=== PATIENT | male | born 1960 | race Caucasian/White ===

== ENCOUNTER → 2023-04-30 16:23 | Outpatient (REF) | payer OTHER, SELFPAY | LOC: HWRAD 16:23 | PROVIDERS: ATTENDING PHYSICIAN Physician Assistant; FAMILY PHYSICIAN Family Medicine | DX: N28.89 Other specified disorders of kidney and ureter (principal) | CPT/HCPCS: 71046 ==

== ENCOUNTER → 2023-05-11 10:58 | Outpatient (REF) | payer OTHER, SELFPAY | LOC: HWRAD 10:58 | PROVIDERS: ATTENDING PHYSICIAN Physician Assistant; FAMILY PHYSICIAN Family Medicine; REFERRING PHYSICIAN Urology | DX: N28.89 Other specified disorders of kidney and ureter (principal) | CPT/HCPCS: 76775 ==

== ENCOUNTER → 2023-06-05 11:25 | Outpatient (REF) | payer OTHER, SELFPAY | LOC: HWRAD 11:25 | PROVIDERS: ATTENDING PHYSICIAN Physician Assistant; FAMILY PHYSICIAN Family Medicine | DX: C64.9 Malignant neoplasm of unspecified kidney, except renal pelvis (principal) | CPT/HCPCS: 74178; Q9967 ==

== ENCOUNTER 2023-09-04 09:34 | Emergency (ER) | payer OTHER, SELFPAY ==
[2023-09-04 09:36] VITALS: BP 182/119
--- NOTE | 2023-09-04 09:46 | ED.GENMED ---
History of Present Illness
General
Chief Complaint: Urinary Symptoms
Source: patient
Time Seen by Provider: 09/04/23 09:38
Travel History
Have you had any contact with someone who has COVID-19?: No
Do you have any symptoms of coronavirus? Fever > 100 degrees, chills, cough, shortness of breath, sore throat, loss of taste or smell, muscle aches, or headache?: No
History of Present Illness
History of Present Illness:
62-year-old male with past medical history of hypertension, GERD, BPH presenting to the emergency department for evaluation of inability to urinate since 6 AM this morning. Patient reports significant lower abdominal pressure and an urge to urinate
but inability to do so. He states this has happened previously with the last time being this past March. Patient takes alfuzosin and reports good compliance with this. Denies any fevers, chills, rigors, back or flank pain, nausea, vomiting. No
other concerns
Past History
Past History
ED Past Medical History: Cancer, GERD and HTN
ED Past Surgical History: Appendectomy and Other
Social History
Tobacco: Former smoker
Alcohol: None
Drug: None
Personal:
Living: with family
Employment: Employed
Review of Systems
Review of Systems
All Other Systems: ROS reviewed and negative except as documented in HPI and ROS
Phy Exam
Physical Exam
Physical Exam:
GENERAL: Alert , appears very uncomfortable
EYE: conjunctiva clear
Head: Normocephalic atraumatic
NECK: Supple,
ENT: mmm.
LUNGS: no acute respiratory distress
Abdomen: Distended suprapubic region, firm to palpation
NEUROLOGICAL: Alert and oriented
SKIN: Warm and dry, skin intact.
MUSCULOSKELETAL: well perfused.
PSYCH: Normal and appropriate interaction.
Scores
Heart Failure Risk
Heart Failure Risk Score: Not Applicable
Heart Score for Chest Pain Patients
STEMI patient?: Not applicable
Withdrawal Assessment of Alcohol
Withdrawal Assessment Completed?: Not applicable
Course
Orders/Labs/Results
Orders:
Orders
09/04/23 09:39
Bladder Scan- Treatment ONCE
09/04/23 10:02
Urinalysis Reflex To Culture Urgent
Date Specimen was Collected: 09/04/23
Time Specimen was Collected: 09:54
Vital Signs
Initial and Last Documented VS:
Initial Vital Signs
Temp Pulse Resp BP Pulse Ox
97.4 F 110 18 182/119 98
09/04/23 09:36 09/04/23 09:36 09/04/23 09:36 09/04/23 09:36 09/04/23 09:36
Last Documented Vital Signs
Temp Pulse Resp BP Pulse Ox
97.4 F 74 16 135/72 98
09/04/23 09:36 09/04/23 10:49 09/04/23 10:49 09/04/23 10:49 09/04/23 10:49
MDM/Problems Addressed
Differential Diagnosis Includes:
Urinary retention, cystitis, pyelonephritis
MDM/Problems Addressed:
62-year-old male presenting to the emergency department for evaluation of inability to urinate since 6 AM. Significant abdominal distention and tenderness on exam. Patient is also quite uncomfortable in appearance. Bedside bladder scan shows
greater than 600 mL of urine within the bladder. Due to his acute urinary retention decision was made to place a indwelling Adame catheter. Will send off a urinalysis to evaluate for any infection. Continue his alfuzosin at home. Close follow-up
with urology. Anticipate discharge following.
Chronic conditions affecting care: Other (BPH)
Acute Exacerbation and/or Progression of Chronic Illness: Other (BPH)
*Pulse Oximetry
Patient hypoxic: no
*Critical Care Note
Total Time (30-74mins, 75-104mins- exclusive of procedures): Not Applicable
Data Reviewed
Review of Other/Old Records Reveals: Labs and Records
Source: patient and records
Comment
Comment:
10:05 AM: Patient with greater than 1000 mL of urine after Adame catheter placed. Symptoms significantly improved. UA pending. Anticipate discharge following.
Patient Management
Escalation/DeEscalation of care consider admission/obs:
Patient's urinalysis without any signs of infection. Stable for discharge home and outpatient management with his urologist. Aware of return precautions.
ED Attending Note
-
Portions of this chart may have been created with voice recognition software.� Occasional wrong word or��sound alike� substitutions may have occurred due to the inherent limitations of voice recognition software.
Discharge Plan
Departure
Patient Disposition: Home (Routine Discharge)
Date of Disposition: 09/04/23
Time of Disposition: 10:38
Patient with high blood pressure during this ER visit?: Yes
Discharge Problem:
Acute urinary retention
Instructions: How to Care for Your Adame Catheter, Male
Prescriptions:
No Action
Diovan
160 mg DAILY
bacitracin 1 APPLIC ointment
3.5 gm RIGHT EYE TID Qty: 1 0RF
Referrals:
Jorge Hernandez MD [Family Provider] -
Activity Restrictions/Additional Instructions:
Please contact your urologist for close follow-up visit within the next week
Interventions
Interventions:
*Risk Screen - Suicide Last Done: 09/04/23 09:36
*General Assessment Last Done: 09/04/23 09:36
*Neglect/Abuse Screening Last Done: 09/04/23 09:36
*ED COVID-19 Vaccine History Last Done: 09/04/23 09:36
*Nursing Disposition Last Done: 09/04/23 10:50
ED-Male Genitourinary Assessment Last Done: 09/04/23 09:54
Discharge Date and Time
Discharge Date/Time: 09/04/23 10:50
Print Language: KAZAKH
[2023-09-04 10:49] VITALS: BP 135/72
[2023-09-04 10:53] LABS: Urine Albumin Negative (Neg - Trace); Urine Bilirubin Negative (Negative); Urine Character Clear (Clear); Urine Color Yellow; Urine Glucose Negative (Negative); Urine Ketone Negative (Negative); Urine Leukocyte Negative (Negative); Urine Nitrite Negative (Negative); Urine Occult Blood Negative (Negative); Urine Urobilinogen Negative (Neg - 1+)
== END 2023-09-04 10:50 | disposition home or self-care (01) ==
LOC: EMR 09:34
PROVIDERS: Physician Assistant Medical; EMERGENCY PHYSICIAN Emergency Medicine; FAMILY PHYSICIAN Family Medicine
DX: N40.1 Benign prostatic hyperplasia with lower urinary tract symptoms (principal); R33.8 Other retention of urine; I10 Essential (primary) hypertension; K21.9 Gastro-esophageal reflux disease without esophagitis; Z87.891 Personal history of nicotine dependence
CPT/HCPCS: 99283; 51798; 51702; 81003

== ENCOUNTER 2023-11-28 00:07 | Emergency (ER) | payer OTHER, SELFPAY ==
[2023-11-28 00:23] VITALS: BP 173/121
[2023-11-28] MEDS: LIDOCAINE URO-JET 2% 1 SYRINGE TOPICAL (00:47)
[2023-11-28 00:55] LABS: Urine Albumin Negative (Neg - Trace); Urine Bilirubin Negative (Negative); Urine Character Clear (Clear); Urine Color Yellow; Urine Glucose Negative (Negative); Urine Ketone Negative (Negative); Urine Leukocyte Negative (Negative); Urine Nitrite Negative (Negative); Urine Occult Blood Negative (Negative); Urine Urobilinogen Negative (Neg - 1+); Urine pH 6.5 (5.0-9.0)
--- NOTE | 2023-11-28 01:53 | ED.GENMED ---
History of Present Illness
General
Chief Complaint: Male Genito-Urinary Symptoms
Source: patient
Exam Limitations: none
Time Seen by Provider: 11/28/23 01:47
History of Present Illness
History of Present Illness:
See MDM
Past History
Past History
ED Past Medical History: Cancer, GERD and HTN
ED Past Surgical History: Appendectomy and Other
Social History
Tobacco: Former smoker
Alcohol: None
Drug: None
Personal:
Living: with family
Employment: Employed
Phy Exam
Physical Exam
Physical Exam:
See MDM
Course
Orders/Labs/Results
Orders:
Orders
11/28/23 00:32
Lidocaine 2% [Lidocaine Uro-Jet 2%] 1 syringe .ROUTE .[facility]
11/28/23 00:47
Urine Reflex Culture from UA [Urinalysis Reflex To Culture] Urgent
Date Specimen was Collected: 11/28/23
Time Specimen was Collected: 00:46
Lidocaine 2% [Lidocaine Uro-Jet 2%] 1 syringe TOPICAL NOW STA
Vital Signs
Initial and Last Documented VS:
Initial Vital Signs
Pulse Resp BP Pulse Ox
111 20 173/121 99
11/28/23 00:23 11/28/23 00:23 11/28/23 00:23 11/28/23 00:23
Last Documented Vital Signs
Pulse Resp BP Pulse Ox
111 20 173/121 99
11/28/23 00:23 11/28/23 00:23 11/28/23 00:23 11/28/23 00:23
MDM/Problems Addressed
Differential Diagnosis Includes:
HPI and MDM Narrative:
63-year-old male presenting with abdominal discomfort and inability urinate. Patient states he has been trying to urinate for the past 4 hours. Due to his discomfort, nursing did place Adame catheter. The catheter removed over 600 mL of urine.
Symptoms are improving. Patient states similar issue occurred several months ago
Physical exam
General: Well appearing and non-toxic (my exam was performed after Adame catheter was placed)
HEENT: protecting airway
Neck: appears supple
CV: No evidence of cyanosis
Resp: No accessory muscle use
Abd: Non-distended and nontender
Extremities: No deformities
Neuro: alert
Psych: Normal affect
Skin: Intact
Problems Addressed including Acute and Chronic Conditions affecting care:
1. Acute urinary retention
Acuity: acute
Prognosis: stable
Details: Adame catheter was placed which resolved all symptoms. Discussed having this reevaluated by PCP in urologist. Patient has a known prostate issue and is already on prostate medicine
Differential Diagnosis (but not limited to): UTI, acute urinary retention
Testing considered: Creatinine
Drug therapy (if applicable): OTC meds, please see d/c instruction regarding Rx drugs
Amount and/or Complexity of Data Reviewed
Clinical info obtained from: Patient
External data reviewed: N/A
Labs I independently reviewed (but not limited to): Urinalysis negative for infection
Radiology: N/A
Pulse Ox: not hypoxic
EKG independently reviewed: N/A
Skin Care Therapist: N/A
Critical Care: N/A
Risk of Complication:
Social Determinants of health: Good social support
Discussed with other providers: N/A
Escalation of Care includes Admit/Obs: After being observed in the Emergency Department, pt stable for discharge.
Occasional wrong word or 'sound a like' substitutions may have occurred due to the inherent limitations of voice recognition software. Read the chart carefully and recognize, using context, where substitutions have occurred.
*Critical Care Note
Total Time (30-74mins, 75-104mins- exclusive of procedures): Not Applicable
ED Attending Note
-
Portions of this chart may have been created with voice recognition software.� Occasional wrong word or��sound alike� substitutions may have occurred due to the inherent limitations of voice recognition software.
Discharge Plan
Departure
Patient Disposition: Home (Routine Discharge)
Date of Disposition: 11/28/23
Time of Disposition: 01:54
Patient with high blood pressure during this ER visit?: Yes
Discharge Problem:
Acute urinary retention
Instructions: How to Care for Your Adame Catheter, Male, BLOOD PRESSURE
Prescriptions:
No Action
Diovan
160 mg DAILY
bacitracin 1 APPLIC ointment
3.5 gm RIGHT EYE TID Qty: 1 0RF
Referrals:
Jorge Hernandez MD [Family Provider] -
Activity Restrictions/Additional Instructions:
Please return for any worsening symptoms.
You may return at any time if you have further concerns.
Please follow up with your doctor or urologist at the first available appointment.
Thank you for choosing [facility].
Interventions
Interventions:
*Risk Screen - Suicide Last Done: 11/28/23 00:23
*Neglect/Abuse Screening Last Done: 11/28/23 00:23
ED- Fall Risk Assessment Last Done: 11/28/23 00:59
*ED COVID-19 Vaccine History Last Done: 11/28/23 00:23
ED-Male Genitourinary Assessment Last Done: 11/28/23 00:59
Discharge Date and Time
Print Language: GAMBIAN
[2023-11-28 02:15] VITALS: BP 133/83
== END 2023-11-28 02:17 | disposition home or self-care (01) ==
LOC: EMR 00:07
PROVIDERS: Emergency Medicine; EMERGENCY PHYSICIAN Student in an Organized Health Care Education/Training Program; FAMILY PHYSICIAN Family Medicine
DX: R33.9 Retention of urine, unspecified (principal); I10 Essential (primary) hypertension; K21.9 Gastro-esophageal reflux disease without esophagitis; Z85.9 Personal history of malignant neoplasm, unspecified; Z87.891 Personal history of nicotine dependence
CPT/HCPCS: 99284; 51702; 81003

== ENCOUNTER 2023-12-02 05:41 | Emergency (ER) | payer OTHER, SELFPAY ==
[2023-12-02 05:45] VITALS: BP 157/83; BMI 25.6
[2023-12-02 06:00] VITALS: BP 135/79
[2023-12-02 06:13] LABS: % Basophils 0.3 % (0-2); % Eosinophils 1.4 % (0-6); % Immature Granulocytes 0.3 % (0-0.5); % Lymphocytes 30.7 % (20.5-51.1); % Monocytes 4.9 % (1.7-9.3); % Neutrophils 62.4 % (42.2-75.2); Absolute Eosinophils 0.1 10^3/uL (0-0.7); Absolute Lymphocytes 1.8 10^3/uL (1.2-3.4); Absolute Monocytes 0.3 10^3/uL (0.1-0.6); Absolute Neutrophils 3.6 10^3/uL (1.4-6.5); Hematocrit 39.9 % (39.0-52.0); Hemoglobin 14.7 g/dL (13.0-18.0); Mean Corp Hgb Conc. 36.8 g/dL (33.0-37.0); Mean Corpuscular Hgb 29.3 pg (27.0-31.0); Mean Corpuscular Volume 79.6 fL (80.0-94.0); Mean Platelet Volume 11.1 fL (7.4-10.4); Nucleated Red Blood Cells % 0 % (-); Platelet Count 144 10^3/uL (130-400); Red Blood Cell Count 5.01 10^6/uL (4.70-6.10); Red Cell Dist. Width 13.3 % (11.5-14.5); White Blood Cell Count 5.7 10^3/uL (4.8-10.8)
--- NOTE | 2023-12-02 06:24 | ED.GENMED ---
History of Present Illness
General
Chief Complaint: Back Pain
Source: patient and spouse
Exam Limitations: none
Time Seen by Provider: 12/02/23 06:23
History of Present Illness
History of Present Illness:
63-year-old male with left scapular leg pain about 10 PM. Lasted for 5 to 10 minutes then resolved. Recurred at 4:30 in the morning. Has been persistent since then no though significantly improved. No pleuritic pain no shortness of breath no
nausea or vomiting. No diaphoresis. Some of the discomfort may have radiated to his chest. No history of same. Patient exercises regularly without issues
Past History
Past History
ED Past Medical History: Cancer, GERD and HTN
ED Past Surgical History: Appendectomy and Other
Social History
Tobacco: Former smoker
Alcohol: None
Drug: None
Personal:
Living: with family
Employment: Employed
Review of Systems
Review of Systems
All Other Systems: Not applicable
Respiratory: Reports no symptoms
ABD/GI: Reports no symptoms
Phy Exam
Physical Exam
Physical Exam:
GENERAL: Alert and oriented in no apparent distress
EYE: Orbits normal.
NECK: Supple, nontender
ENT: Pharynx without erythema
CARDIAC: Regular rate and rhythm without any obvious murmurs.
LUNGS: Clear breath sounds,normal. No scapular tenderness or swelling. No rash. No vesicles.
ABDOMEN: Soft, without focal tenderness or distention
NEUROLOGICAL: Alert and oriented , grossly non-focal
SKIN: Warm and dry, no rash or lesion, no discoloration, skin intact.
MUSCULOSKELETAL: No edema,no deformity.Good color
PSYCH: Normal and appropriate interaction.
Course
Orders/Labs/Results
Orders:
Orders
12/02/23 05:43
Electrocardiogram (*1) Urgent
Reason for Study: Chest Pain
Cardiac Monitoring- Treatment ONCE
EKG- Treatment ONCE
IV Insert/Care/Rem.- Treatment PRN
O2 Therapy [RESP] Urgent
Titrate/Wean O2 to maintain O2 sat greater than (%): 90
Special Instructions: Maintain sats >/=90%
Pulse Ox/spot Check [RESP] Urgent
Quantity: 1
Special Instructions: ON ROOM AIR
12/02/23 05:52
CXR2 [CR Chest - 2 Views ] Urgent
Comment:
Reason For Exam: upper left back pain
12/02/23 05:56
Comprehensive Metabolic Panel Urgent
Lipase Urgent
Troponin I Urgent
12/02/23 05:57
COVID-19 Antigen Urgent
Source: Nasal Swab
Complete Blood Count/With Diff Urgent
12/02/23 06:33
CT Chest Angio W/wo Iv Contras Urgent
Comment:
Reason For Exam: Sudden left scapular pain
0.9% Sodium Chloride 500 ml [Nss] 500 ml IV BOLUS
12/02/23 09:23
Electrocardiogram (*1) Stat
Reason for Study: Other
Other Reason for Exam: chest pain
EKG- Treatment ONCE
12/02/23 09:59
Troponin I Urgent
Abnormal Lab Results
12/02/23 12/02/23
05:56 05:57
MCV 79.6 L fL
(80.0-94.0)
MPV 11.1 H fL
(7.4-10.4)
Chloride 108 H mmol/L
(98-107)
BUN 26 H mg/dl
(9-20)
Glucose 127 H mg/dl
(70-99)
Total Protein 6.2 L g/dl
(6.3-8.2)
12/02/23 05:57
12/02/23 05:56
Vital Signs
Initial and Last Documented VS:
Initial Vital Signs
Temp Pulse Resp BP Pulse Ox
98.7 F 80 18 157/83 99
12/02/23 05:45 12/02/23 05:45 12/02/23 05:45 12/02/23 05:45 12/02/23 05:45
Last Documented Vital Signs
Temp Pulse Resp BP Pulse Ox
98.7 F 74 18 128/84 98
12/02/23 05:45 12/02/23 10:00 12/02/23 10:00 12/02/23 10:00 12/02/23 10:00
MDM/Problems Addressed
Differential Diagnosis Includes:
Sudden left scapular pain. Doubt cardiac. EKG stable. Troponin pending. Will repeat in 3 hours for completeness. Although unlikely to be dissection or pulmonary emboli clinically.... This needs to be ruled out. CT angio pending.
*Radiology
Radiology exam reviewed: preliminary read by ED provider (Negative chest x-ray) and radiology read reviewed (Stable CT scan. Small pulmonary nodules)
*Pulse Oximetry
Patient hypoxic: no
*EKG
Interpreted by ED Provider?: Yes
Interpretation: normal
Comparison EKG: no changes
Heart Rate: 77
Rate: normal
Rhythm: sinus
[place]: normal axis
Interval: normal interval
QRS Pattern: normal QRS
Ischemia: no ischemia
*Critical Care Note
Total Time (30-74mins, 75-104mins- exclusive of procedures): Not Applicable
Data Reviewed
Review of Other/Old Records Reveals: Labs, Records and Testing
Update Note
Update Note:
Patient is remained stable throughout his ER stay. He is clinically stable now. He has no symptoms. Repeat KG is sinus bradycardia at 56. No acute changes. Repeat troponin is negative. CT angiography negative. Discharged to follow-up
ED Attending Note
-
Portions of this chart may have been created with voice recognition software.� Occasional wrong word or��sound alike� substitutions may have occurred due to the inherent limitations of voice recognition software.
Discharge Plan
Departure
Patient Disposition: Home (Routine Discharge)
Date of Disposition: 12/02/23
Time of Disposition: 11:29
Patient with high blood pressure during this ER visit?: Yes
Discharge Problem:
Sudden left scapular/chest pain
Instructions: Upper Back Pain (DC), Chest Pain CBC Follow Up, BLOOD PRESSURE
Prescriptions:
No Action
Diovan
160 mg DAILY
bacitracin 1 APPLIC ointment
3.5 gm RIGHT EYE TID Qty: 1 0RF
Referrals:
Jorge Hernandez MD [Family Provider] - Follow up in 2-3 days
Interventions
Interventions:
*Risk Screen - Suicide Last Done: 12/02/23 05:45
*General Assessment Last Done: 12/02/23 05:45
*Neglect/Abuse Screening Last Done: 12/02/23 05:45
ED- Fall Risk Assessment Last Done: 12/02/23 05:45
*ED COVID-19 Vaccine History Last Done: 12/02/23 05:45
ED-Musculoskeletal Assessment Last Done: 12/02/23 06:15
Discharge Date and Time
Print Language: SENEGALESE
[2023-12-02 06:30] LABS: ALT (SGPT) 16 U/L (0-50); AST (SGOT) 20 U/L (17-59); Albumin 3.9 g/dl (3.5-5.0); Alkaline Phosphatase 62 U/L (38-126); Blood Urea Nitrogen 26 mg/dl (9-20); Calcium 9.3 mg/dl (8.4-10.2); Carbon Dioxide 22 mmol/L (22-30); Chloride 108 mmol/L (98-107); Estimated Creatinine Clearance 96 ml/min; Glucose 127 mg/dl (70-99); Lipase 228 U/L (23-300); Potassium 3.9 mmol/L (3.5-5.1); Sodium 139 mmol/L (135-145); Total Protein 6.2 g/dl (6.3-8.2); eGFR > 60.00
[2023-12-02 06:38] LABS: COVID-19 Antigen Negative (Negative)
[2023-12-02 06:40] LABS: Troponin I < 0.012 ng/ml
[2023-12-02] MEDS: NSS 500 IV (06:44)
[2023-12-02 07:00] VITALS: BP 119/73
[2023-12-02 10:00] VITALS: BP 128/84
[2023-12-02 10:42] LABS: Troponin I < 0.012 ng/ml
[2023-12-02 11:41] VITALS: BP 115/73
== END 2023-12-02 11:54 | disposition home or self-care (01) ==
LOC: EMR 05:41
PROVIDERS: Student in an Organized Health Care Education/Training Program; EMERGENCY PHYSICIAN Emergency Medicine; FAMILY PHYSICIAN Family Medicine
DX: R07.89 Other chest pain (principal); K21.9 Gastro-esophageal reflux disease without esophagitis; I10 Essential (primary) hypertension; Z87.891 Personal history of nicotine dependence; Z90.49 Acquired absence of other specified parts of digestive tract
CPT/HCPCS: 99284; 71046; 71275; 80053; 83690; 84484; 85025; 87811; 93005; Q9967

== ENCOUNTER 2024-02-01 02:54 | Emergency (ER) | payer OTHER, SELFPAY ==
[2024-02-01 02:57] VITALS: BP 157/102
[2024-02-01 03:30] LABS: Urine Albumin Negative (Neg - Trace); Urine Bilirubin Negative (Negative); Urine Character Clear (Clear); Urine Color Yellow; Urine Glucose Negative (Negative); Urine Ketone Negative (Negative); Urine Leukocyte Negative (Negative); Urine Nitrite Negative (Negative); Urine Occult Blood Negative (Negative); Urine Specific Gravity 1.015 (<1.030); Urine Urobilinogen Negative (Neg - 1+)
--- NOTE | 2024-02-01 04:45 | ED.GENMED ---
History of Present Illness
General
Chief Complaint: Male Genito-Urinary Symptoms
Source: patient
Exam Limitations: none
Time Seen by Provider: 02/01/24 04:24
Nursing documentation reviewed up to this point in time: agreed with
History of Present Illness
History of Present Illness:
Pleasant 63-year-old male presents with urinary retention. He presented to the emergency department with the need for Adame catheter. He states that he has been here 2 other times for urinary obstruction. He is scheduled for a prostatic ablation
at [facility] next week. Denies any other symptoms.
Past History
Past History
ED Past Medical History: Cancer, GERD and HTN
ED Past Surgical History: Appendectomy and Other
Social History
Tobacco: Former smoker
Alcohol: None
Drug: None
Personal:
Living: with family
Employment: Employed
Review of Systems
Review of Systems
Allergies reviewed?: Yes
All Other Systems: ROS reviewed and negative except as documented in HPI and ROS
Constitutional: Reports no symptoms
EENT: Reports no symptoms
Respiratory: Reports no symptoms
Cardiac: Reports no symptoms
ABD/GI: Reports no symptoms
: Reports difficulty voiding
Musculoskeletal: Reports no symptoms
Skin: Reports no symptoms
Neurological: Reports no symptoms
Endocrine: Reports no symptoms
Hematologic/Lymphatic: Reports no symptoms
Psychiatric: Reports no symptoms
Phy Exam
General Physical Exam
General Presentation: well appearing
General age: appears stated age
General Skin: warm
General Habitus: normal
General Mental: alert
General Hydration: appears well hydrated
Cardiovascular Exam
Cardiovascular Exam: regular rate/rhythm and no edema
Pulmonary Exam
Pulmonary Exam: no respiratory distress and no cough
Neurological Exam
Neurological Exam: alert and oriented x3
Musculoskeletal Exam
Musculoskeletal Exam: full ROM
Skin Exam
Skin Exam: normal color and warm/dry
Psychiatric Exam
Psychiatric Exam: normal mood/affect
Course
Orders/Labs/Results
Orders:
Orders
02/01/24 03:17
Adame [Adame Placement- Treatment] ONCE
Reason for insertion: Acute Retention
Catheter- Indwelling As Directed
Reason for insertion: Acute Retention
Size: 16
Type: Indwelling
Discontinue Date/Time: 02/04/24 0600
02/01/24 03:20
Urinalysis Reflex To Culture Urgent
Date Specimen was Collected: 02/01/24
Time Specimen was Collected: 03:18
Vital Signs
Initial and Last Documented VS:
Initial Vital Signs
Temp Pulse Resp BP Pulse Ox
98.3 F 105 16 157/102 98
02/01/24 02:57 02/01/24 02:57 02/01/24 02:57 02/01/24 02:57 02/01/24 02:57
Last Documented Vital Signs
Temp Pulse Resp BP Pulse Ox
98.3 F 105 16 157/102 98
02/01/24 02:57 02/01/24 02:57 02/01/24 02:57 02/01/24 02:57 02/01/24 02:57
*Critical Care Note
Total Time (30-74mins, 75-104mins- exclusive of procedures): Not Applicable
Update Note
Update Note:
Adame catheter was placed. Leg bag in place. Patient tolerated procedure well. Urinalysis sent. Within normal limits.
ED Attending Note
-
Portions of this chart may have been created with voice recognition software.� Occasional wrong word or��sound alike� substitutions may have occurred due to the inherent limitations of voice recognition software.
Discharge Plan
Departure
Patient Disposition: Home (Routine Discharge)
Date of Disposition: 02/01/24
Time of Disposition: 04:47
Patient with high blood pressure during this ER visit?: Yes
Discharge Problem:
Acute urinary retention
Instructions: How to Care for Your Adame Catheter, Male, Urinary Retention (DC)
Prescriptions:
No Action
Diovan
160 mg PO DAILY
Referrals:
Jorge Hernandez MD [Family Provider] -
Activity Restrictions/Additional Instructions:
Please follow-up with your urologist at [facility].
It was a pleasure meeting you and taking part in your care. We hope for your continued healing and wellness.
Please read discharge instructions in their entirety. However, they are for general education and may not describe your exact diagnosis at discharge. Information on your ER visit and medical conditions were discussed with you along with appropriate
follow up information...
If indicated, please take your medications as instructed and indicated on discharge paperwork.
Please schedule a follow up appointment as directed. Call to schedule an appointment
Please return to the emergency department with ANY change in, persisting, or worsening of symptoms. If any of your symptoms do not improve, or persist, or become more severe within 6-12 hours, please return to the emergency department for further
care.
Please return to the emergency department if you develop a headache, neck pain/stiffness, fever greater than 100.4F, chest pain, shortness of breath, persistent nausea, vomiting, slurred speech, difficulty walking, numbness/tingling, weakness, signs
of infection or any other symptoms that are worrisome to you.
If you have any questions or concerns please do not hesitate to call the Hospital at or E-mail me directly at [email or web address]
Interventions
Interventions:
*Risk Screen - Suicide Last Done: 02/01/24 02:57
*Neglect/Abuse Screening Last Done: 02/01/24 02:57
ED- Fall Risk Assessment Last Done: 02/01/24 03:20
*ED COVID-19 Vaccine History Last Done: 02/01/24 02:57
ED-Male Genitourinary Assessment Last Done: 11/04/24 03:20
Discharge Date and Time
Print Language: HUNGARIAN
== END 2024-02-01 04:50 | disposition home or self-care (01) ==
LOC: EMR 02:54
PROVIDERS: EMERGENCY PHYSICIAN Student in an Organized Health Care Education/Training Program; FAMILY PHYSICIAN Family Medicine
DX: R33.9 Retention of urine, unspecified (principal); I10 Essential (primary) hypertension; K21.9 Gastro-esophageal reflux disease without esophagitis; Z87.891 Personal history of nicotine dependence; Z90.49 Acquired absence of other specified parts of digestive tract
CPT/HCPCS: 51702; 99283; 81003

== ENCOUNTER 2024-03-11 12:59 | Emergency (ER) | payer OTHER, SELFPAY ==
[2024-03-11 13:01] VITALS: BP 147/86
--- NOTE | 2024-03-11 15:25 | ED.GENMED ---
Addendum entered and electronically signed by Song Boston PA-C 03/14/24 08:26:
Urine culture demonstrates Enterococcus. Bactrim not effective. Will change to Levaquin. Spoke with patient and called in prescription for Levaquin 500 milligrams daily for 7 days.
Original Note:
History of Present Illness
General
Chief Complaint: Catheter/Tube Problem
Source: patient
Exam Limitations: none
Time Seen by Provider: 03/11/24 15:16
Nursing documentation reviewed up to this point in time: agreed with
History of Present Illness
History of Present Illness:
Patient to ED with complaint of blocked [place] catheter. States he had a prostate ablation on Mar 01 at [facility]. [place] catheter was removed 4 days later. States he was unable to void and returned the next day and catheter was placed again. States
catheter blocked again yesterday. He returned to [place] [facility] and canada changed. THis AM he reports no urine. While waiting in waiting room catheter began to drain, issue has resolved. Blood tinged urine in bag, no clots.
Past History
Past History
ED Past Medical History: Cancer, GERD, HTN and Hypercholesterolemia
ED Past Surgical History: Appendectomy and Other
Social History
Tobacco: Former smoker
Alcohol: None
Drug: None
Personal:
Living: with family
Employment: Employed
Review of Systems
Review of Systems
Allergies reviewed?: Yes
All Other Systems: ROS reviewed and negative except as documented in HPI and ROS
Constitutional: Reports no symptoms
EENT: Reports no symptoms
Respiratory: Reports no symptoms
Cardiac: Reports no symptoms
ABD/GI: Reports no symptoms
: Reports other (To ED for eval of blocked [place] catheter. Now draining.)
Musculoskeletal: Reports no symptoms
Skin: Reports no symptoms
Neurological: Reports no symptoms
Psychiatric: Reports no symptoms
Phy Exam
General Physical Exam
General Presentation: well appearing and no apparent distress
General age: appears stated age
General Skin: warm and dry
General Habitus: normal
General Mental: alert
General Hydration: appears well hydrated
Gastrointestinal Exam
Gastrointestinal Exam: normal bowel sounds, non tender, soft and no cva tenderness
Musculoskeletal Exam
Musculoskeletal Exam: full ROM and neuro vasc intact
Skin Exam
Skin Exam: normal color, warm/dry and no rash
Psychiatric Exam
Psychiatric Exam: normal mood/affect
Course
Orders/Labs/Results
Orders:
Orders
03/11/24 15:25
Bladder Scan- Treatment ONCE
03/11/24 15:58
Urinalysis Reflex To Culture Urgent
Date Specimen was Collected: 03/11/24
Time Specimen was Collected: 15:57
Urine Microscopic Reflex Cult Urgent
Urine Culture Urgent
ANA MARIA Source: U
Specimen Description:
Date Specimen was Collected: 03/11/24
Time Specimen was Collected: 15:57
03/11/24 16:53
Sulfamethox./Trimethoprim Ds [Bactrim Ds 800 mg/160 mg] 1 tablet PO NOW STA
Abnormal Lab Results
03/11/24
15:58
Ur Occult Blood Reflex 4+ A
(Negative)
Urine Bilirubin 1+ A
(Negative)
Leukocyte Esterase Rfl 2+ A
(Negative)
Urine RBC 30-40 A /HPF
(0-2)
Urine WBC (Reflex) 26-30 A /HPF
(0-5)
Urine Bacteria (Reflex) Moderate A
(Negative)
Urine Albumin (Reflex) 2+ A
(Neg - Trace)
Vital Signs
Initial and Last Documented VS:
Initial Vital Signs
Temp Pulse Resp BP Pulse Ox
98.4 F 91 16 147/86 99
03/11/24 13:01 03/11/24 13:01 03/11/24 13:01 03/11/24 13:01 03/11/24 13:01
Last Documented Vital Signs
Temp Pulse Resp BP Pulse Ox
98.4 F 91 18 147/86 99
03/11/24 13:01 03/11/24 13:01 03/11/24 16:03 03/11/24 13:01 03/11/24 13:01
*Critical Care Note
Total Time (30-74mins, 75-104mins- exclusive of procedures): Not Applicable
Update Note
Update Note:
Ppatient to ED for eval of blocked [place] catheter. Replaced yesterday at [facility] for same. Woke this AM and states [place] was blocked again however it resolved while waiting in waiting room. Will check bladder scan and UA. He offers no complaints at
this time.
[place] catheter continues to drain light blood tinged urine without difficulty. He has no abdominal or back pain. UA +UTI. Placed on Bactrim DS, rx sent to pharmacy. He is discharged home. Encourage po fluids. Will follow up at [facility] as
scheduled.
ED Attending Note
-
Portions of this chart may have been created with voice recognition software.� Occasional wrong word or��sound alike� substitutions may have occurred due to the inherent limitations of voice recognition software.
Discharge Plan
Departure
Patient Disposition: Home (Routine Discharge)
Date of Disposition: 03/11/24
Time of Disposition: 16:57
Patient with high blood pressure during this ER visit?: No
Condition: Good
Covid-19: Not Applicable
Discharge Problem:
Complication of [place] catheter, Acute UTI
Instructions: Urinary tract infections in adults, How to Care for Your [place] Catheter, Male
Prescriptions:
New
sulfamethoxazole-trimethoprim [Bactrim DS] 800-160 mg tablet
1 tab PO BID Qty: 13 0RF
No Action
Diovan
160 mg PO DAILY
Referrals:
Jorge Hernandez MD [Family Provider] -
Activity Restrictions/Additional Instructions:
Follow up with urologist at [facility] as scheduled.
Interventions
Interventions:
*Risk Screen - Suicide Last Done: 03/11/24 13:01
*General Assessment Last Done: 03/11/24 13:01
*Neglect/Abuse Screening Last Done: 03/11/24 13:01
*ED COVID-19 Vaccine History Last Done: 03/11/24 13:01
NP-Abgbnw-Cldfdzcnlo Assessment Last Done: 03/11/24 16:03
ED-Male Genitourinary Assessment Last Done: 03/11/24 16:03
Discharge Date and Time
Print Language: CROATIAN
[2024-03-11 16:28] LABS: Urine Albumin 2+ (Neg - Trace); Urine Bilirubin 1+ (Negative); Urine Character Bloody (Clear); Urine Color Brown; Urine Glucose Negative (Negative); Urine Ketone Negative (Negative); Urine Leukocyte 2+ (Negative); Urine Nitrite Negative (Negative); Urine Occult Blood 4+ (Negative); Urine Specific Gravity 1.025 (<1.030); Urine Urobilinogen 1+ (Neg - 1+)
[2024-03-11 16:48] LABS: Urine Squamous Cell 0-2 /LPF (Few)
[2024-03-11 16:49] LABS: Urine Bacteria Moderate (Negative); Urine Calcium Oxalate Crystals Present; Urine Red Blood Cell 30-40 /HPF (0-2); Urine White Cell 26-30 /HPF (0-5)
[2024-03-11] MEDS: BACTRIM DS 800 MG/160 MG 1 TABLET PO (16:59)
== END 2024-03-11 17:30 | disposition home or self-care (01) ==
LOC: EMR 12:59
PROVIDERS: Nurse Practitioner; EMERGENCY PHYSICIAN Emergency Medicine; FAMILY PHYSICIAN Family Medicine
DX: T83.098A Other mechanical complication of other urinary catheter, initial encounter (principal); N39.0 Urinary tract infection, site not specified; E78.00 Pure hypercholesterolemia, unspecified; I10 Essential (primary) hypertension; K21.9 Gastro-esophageal reflux disease without esophagitis; Z87.891 Personal history of nicotine dependence; Z90.49 Acquired absence of other specified parts of digestive tract
CPT/HCPCS: 99283; 81003; 81015; 87077; 87086; 87186

== ENCOUNTER → 2024-06-09 13:21 | Outpatient (REF) | payer OTHER, SELFPAY | LOC: MRI 3T 13:21 | PROVIDERS: ATTENDING PHYSICIAN Physician Assistant | DX: C64.9 Malignant neoplasm of unspecified kidney, except renal pelvis (principal) | CPT/HCPCS: 74183; A9575 ==

== ENCOUNTER → 2025-02-07 13:24 | Outpatient (REF) | payer MEDICARE, OTHER, SELFPAY | LOC: RAD 13:24 | PROVIDERS: ATTENDING PHYSICIAN Physician Assistant | DX: C64.9 Malignant neoplasm of unspecified kidney, except renal pelvis (principal) | CPT/HCPCS: 71046; 76775 ==